=== PATIENT | female | born 1960 ===

== ENCOUNTER 2021-08-22 08:15 | Outpatient (CLI) | payer OTHER | END 2021-08-22 08:34 | disposition home or self-care (01) | LOC: LAB 08:15 | DX: D51.8 Other vitamin B12 deficiency anemias (principal); E11.9 Type 2 diabetes mellitus without complications; E83.42 Hypomagnesemia; E78.00 Pure hypercholesterolemia, unspecified ==

== ENCOUNTER 2021-10-14 10:37 | Outpatient (CLI) | payer OTHER | END 2021-10-14 10:47 | disposition home or self-care (01) | LOC: LAB 10:37 | DX: E89.0 Postprocedural hypothyroidism (principal) ==

== ENCOUNTER 2022-11-12 09:46 | Outpatient (CLI) | payer OTHER | END 2022-11-12 09:55 | disposition home or self-care (01) | LOC: LAB 09:46 | PROVIDERS: ATTEND Family Medicine | DX: E78.2 Mixed hyperlipidemia (principal); I10 Essential (primary) hypertension; E03.9 Hypothyroidism, unspecified; D72.818 Other decreased white blood cell count; Z13.1 Encounter for screening for diabetes mellitus; Z13.89 Encounter for screening for other disorder; Z13.220 Encounter for screening for lipoid disorders; Z13.0 Encounter for screening for diseases of the blood and blood-forming organs and certain disorders involving the immune mechanism; Z13.29 Encounter for screening for other suspected endocrine disorder ==

== ENCOUNTER 2023-01-20 07:37 | Outpatient (CLI) | payer OTHER | END 2023-01-20 07:42 | disposition home or self-care (01) | LOC: LAB 07:37 | DX: E55.9 Vitamin D deficiency, unspecified (principal); E89.0 Postprocedural hypothyroidism; D51.9 Vitamin B12 deficiency anemia, unspecified; E11.9 Type 2 diabetes mellitus without complications; E78.00 Pure hypercholesterolemia, unspecified ==